=== PATIENT | male | born 1990 | race Caucasian/White ===

== ENCOUNTER 2021-10-12 17:51 | Emergency (ER) | payer SELFPAY ==
[~2021-10-12] VITALS: Ht 172.7 cm; Wt 78.8 kg
[2021-10-12 17:59] VITALS: BP 134/87
[2021-10-13] MEDS ORDERED: METH-1164 PO (08:27)
== END 2021-10-12 19:20 | disposition left against medical advice (07) ==
LOC: M ED 17:51
DX: Z53.29 Procedure and treatment not carried out because of patient's decision for other reasons (principal)

== ENCOUNTER 2021-10-13 07:03 | Emergency (ER) | payer OTHER, SELFPAY ==
[~2021-10-13] VITALS: Ht 172.7 cm; Wt 79.4 kg
[2021-10-13] MEDS ORDERED: KETOROLAC 30 MG/ML 1ML VIAL IM ONE (07:40)
[2021-10-13] MEDS ORDERED: LIDOCAINE 5% (LIDODERM) PATCH TD ONE (07:45)
[2021-10-13] MEDS ORDERED: methocarbamoL 500 MG TAB PO ONE (07:45)
[2021-10-13 08:15] LABS: BASO % 0.5 % (0.0-1.0); EOS # 0.6 10^3/uL (0.0-0.5); EOS % 7.1 % (0.0-3.0); HEMATOCRIT 44.2 % (42.0-52.0); HEMOGLOBIN 15.3 g/dl (13.5-17.5); LYMPH % 24.5 % (24.0-44.0); MEAN CORPUSCULAR HEMOGLOBIN 30.2 pg (27.0-33.0); MEAN CORPUSCULAR HGB CONC 34.6 g/dl (32.0-36.5); MEAN CORPUSCULAR VOLUME 87.2 fl (80.0-96.0); MONO # 0.8 10^3/uL (0.0-0.8); MONO % 9.5 % (2.0-8.0); NEUTROPHILS # 4.8 10^3/uL (1.5-8.5); NEUTROPHILS % 58.3 % (36.0-66.0); PLATELET COUNT, AUTOMATED 231 10^3/uL (150-450); RED BLOOD COUNT 5.07 10^6/uL (4.30-6.10); WHITE BLOOD COUNT 8.3 10^3/uL (4.0-10.0)
[2021-10-13] MEDS ORDERED: METH-1164 PO (08:27)
[2021-10-13 08:36] LABS: ACETAMINOPHEN LEVEL 16.6 UG/ML (10.0-30.0); ALBUMIN 4.2 GM/DL (3.2-5.2); ALT/SGPT 38 U/L (12-78); BILIRUBIN,TOTAL 0.8 MG/DL (0.2-1.0); BLOOD UREA NITROGEN 13 MG/DL (7-18); CALCIUM LEVEL 9.9 MG/DL (8.5-10.1); CARBON DIOXIDE LEVEL 25 MEQ/L (21-32); CHLORIDE LEVEL 109 MEQ/L (98-107); CREATININE FOR GFR 0.92 MG/DL (0.70-1.30); GLOMERULAR FILTRATION RATE > 60.0 (>60); GLUCOSE, FASTING 90 MG/DL (70-100); SODIUM LEVEL 140 MEQ/L (136-145); TOTAL PROTEIN 7.4 GM/DL (6.4-8.2)
[2021-10-13 09:45] VITALS: BP 131/79
[2021-10-13] MEDS ORDERED: **NOTE PATIENT COMMENT** MISC XX SCH (21:00)
== END 2021-10-13 09:47 | disposition home or self-care (01) ==
LOC: M ED 07:03
DX: M54.50 Low back pain, unspecified (principal); Z87.442 Personal history of urinary calculi
CPT/HCPCS: 36415; 80053; 80143; 81001; 85025; 96372; 99283; J1885